=== PATIENT | male | born 1960 | race Caucasian/White ===

== ENCOUNTER → 2020-07-31 09:53 | Outpatient (CLI) | payer OTHER, SELFPAY ==
--- NOTE | ~2020-07-31 | MR_ITS ---
EXAMINATION: MR knee LT wo con DATE: 07/31/2020 10:58 INDICATION: Acute onset left knee pain TECHNIQUE: Magnetic resonance imaging (MRI) of the left knee was performed without intravenous contra st. Sequences included coronal PD-weighted FSE, coronal PD-weighted FS FSE, sagittal T2-weighted FSE , sagittal PD-weighted FS FSE and axial PD weighted fat saturated FSE. COMPARISON: None. FINDINGS: Medial compartment: Complex tear of the body and posterior horn of the medial meniscus. Full/near full-thickness cartilag e loss with scattered subarticular edema and subarticular eburnation along the anterior two thirds of the medial tibial plateau and the anterior weightbearing medial femoral condyle. A severe partial th ickness cartilage loss throughout the remainder of the medial compartment. Moderate-sized marginal os teophytes are present. Lateral compartment: Lateral meniscus is normal. There is full/near full-thickness cartilage loss along the medial aspect of the anterior weightbearing medial femoral condyle and adjacent medial aspect of the medial tibial plateau along the shoulder the intercondylar eminence. More diffuse mild partial-thickness cartilage loss with smooth chondral surface. Moderate size marginal osteophytes are present. Patellofemoral compartment: Full/near full-thickness cartilage loss with subtle irregularity to the articular cortex and scattere d subarticular edema and mild cystic change at the lateral patellar facet and cephalad and lateral tw o thirds of the lateral trochlea. There appears to be some early remodeling of the articular cortices . Deep chondral ulceration and fissuring with additional scattered underlying cortical irregularity a long the medial trochlea and trochlear groove. Mild fissuring at the medial patellar facet. Small to moderate size marginal osteophytes are present. Ligaments and tendons: Anterior and posterior cruciate ligaments are normal. The medial collateral ligament and fibular viji ateral ligament complex are normal. The extensor mechanism is normal. The visualized medial and later al hamstring tendons as well as the iliotibial band are normal. Fluid: Small left knee joint effusion. 6 mm loose osteochondral body in the recess at the posterolateral asp ect of the medial compartment. Suggestion of a few additional small loose osteochondral bodies surrou nded by small amount of fluid in the popliteal recess. Osseous/other: There is approximately 1 cm lateral patellar subluxation and mild lateral patellar tilt. There is als o approximately 4 mm lateral subluxation of the tibial plateau relative to the femoral condyles. No f racture or abnormal marrow replacing process. IMPRESSION: 1. Complex medial meniscal tear. 2. 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 Reviewed, dictated and finalized at location A. IMPRESSION: 1. Complex medial meniscal tear. 2. Severe medial and patellofemoral compartment predominant tricompartmental os teoarthritis with regions of high-grade chondromalacia in all 3 compartments.
== END ==
PROVIDERS: Visit Provider Specialist
DX: M25.562 Pain in left knee (principal); S83.232A Complex tear of medial meniscus, current injury, left knee, initial encounter; M17.12 Unilateral primary osteoarthritis, left knee; M94.262 Chondromalacia, left knee
CPT/HCPCS: 73721